=== PATIENT | female | born 1975 | race Caucasian/White ===

== ENCOUNTER 2018-09-24 03:37 | Emergency (ER) | payer BC ==
[~2018-09-24] VITALS: Ht 160 cm; Wt 68.0 kg
[2018-09-24 03:37] VITALS: BP_SYST 102
[~2018-09-24 03:37] MED LIST: ASCO-339 PO; FERR236T3 PO
--- NOTE | 2018-09-24 03:45 | NUR ---
Pt placed to ER bed 04 with c/o productive cough (green phlegm), runny nose, thoat pain, sneezing, bilat ear pain since Wednesday. Pt states she was seen at an urgent care last night and was Rx Augmenting 875-125mg, Promethizine DM syrup, and Azelastine 0.1% spray. 1st dose of each med taken at midnight tonight. Airway patent, respirations even and non-labored.
[2018-09-24] MEDS ORDERED: LIDOCAINE VISCOUS 2%, 15 ML UDC MM ONE (04:00)
--- NOTE | 2018-09-24 04:00 | NUR ---
Dr. Velázquez at bedside.
[2018-09-24 04:40] VITALS: BP_SYST 110
--- NOTE | 2018-09-24 04:40 | NUR ---
Patient given written and verbal discharge instructions and verbalizes understanding. ER MD discussed with patient the results and treatment provided. Patient in stable condition. ID arm band removed. Rx of Oxymetazoline spray, Benadryl, Tramadol given. Patient educated on pain management and to follow up with PMD. Pain Scale 4/10. Opportunity for questions provided and answered. Medication side effect fact sheet provided.
== END 2018-09-24 04:40 | disposition home or self-care (01) ==
LOC: SED 03:37
DX: J30.9 Allergic rhinitis, unspecified (principal); Z86.2 Personal history of diseases of the blood and blood-forming organs and certain disorders involving the immune mechanism; Z90.49 Acquired absence of other specified parts of digestive tract
CPT/HCPCS: 99283; J2001